=== PATIENT | female | born 1945 | race Caucasian/White ===

== ENCOUNTER → 2016-09-16 | Outpatient (CLI) | payer MEDICARE, OTHER ==
[2016-09-16 16:21] LABS: Urine Bilirubin Negative (Negative); Urine Blood Negative /uL (Negative); Urine Color Yellow (Yellow); Urine Glucose Normal (Normal); Urine Ketone Negative (Negative); Urine Nitrite Negative (Negative); Urine Urobilinogen Normal (Negative); Urine pH 5.5 (5.0-8.0)
[2016-09-16 17:14] LABS: BUN/Creatinine Ratio 15.4; Bilirubin, Direct 0.2 mg/dL (0-0.2); Bilirubin, Total 0.6 mg/dL (0.2-1.0); Calcium 9.5 mg/dL (8.5-10.1); Potassium 4.3 mmol/L (3.5-5.1); Total Protein 7.5 g/dL (6.4-8.2)
[2016-09-16 17:18] LABS: Basophils # (auto) 0 uL; Basophils % (auto) 0.6 % (0.0-2.0); DEFINITIVE VIEW TRANSMISSION; Eosinophils # (auto) 0.1 uL; Eosinophils % (auto) 1.2 % (0.0-7.0); Hematocrit 49.5 % (36.0-46.0); Hemoglobin 16.1 g/dL (12.2-16.2); Lymphocytes # (auto) 2.9 uL; Lymphocytes % (auto) 35.1 % (10.0-50.0); Mean Corpuscular Hemoglobin 33.1 pg (28.0-32.0); Mean Corpuscular Hgb Conc. 32.5 g/dL (32.0-36.0); Mean Corpuscular Volume 101.9 fL (80.0-100.0); Mean Platelet Volume 7.5 fL (7.4-10.4); Monocytes # (auto) 0.5 uL; Neutrophils # (auto) 4.8 uL; Neutrophils % (auto) 57.1 % (37.0-80.0); Platelet Count (auto) 361 10^3/uL (140-450); Red Cell Distribution Width 14.4 % (11.6-16.0); White Blood Cell 8.3 10^3/uL (4.4-10.8)
[2016-09-16 18:10] LABS: Macrocytosis Slight; Platelet Estimate Adequate
== END | disposition home or self-care (01) ==
LOC: LAB 08:32
PROVIDERS: ATTEND Internal Medicine Cardiovascular Disease
DX: I10 Essential (primary) hypertension (principal); E78.00 Pure hypercholesterolemia, unspecified; K74.1 Hepatic sclerosis; E11.9 Type 2 diabetes mellitus without complications; E03.9 Hypothyroidism, unspecified; D64.9 Anemia, unspecified; E55.9 Vitamin D deficiency, unspecified; N39.0 Urinary tract infection, site not specified
CPT/HCPCS: 36415; 80048; 80061; 80076; 81003; 82306; 83036; 84443; 85025; 85049

== ENCOUNTER → 2017-04-12 | Outpatient (CLI) | payer MEDICARE, OTHER ==
[2017-04-12 12:40] LABS: Urine Bilirubin Negative (Negative); Urine Blood Negative /uL (Negative); Urine Color Yellow (Yellow); Urine Glucose Normal (Normal); Urine Ketone Negative (Negative); Urine Nitrite Negative (Negative); Urine Urobilinogen Normal (Negative); Urine pH 5.5 (5.0-8.0)
[2017-04-12 12:48] LABS: Basophils # (auto) 0 uL; CONDITION Y; DEFINITIVE SEE PRINTOUT; Eosinophils # (auto) 0.1 uL; Monocytes # (auto) 0.5 uL
[2017-04-12 12:58] LABS: Basophils % (auto) 0.3 % (0.0-2.0); Eosinophils % (auto) 1.1 % (0.0-7.0); Hematocrit 43.8 % (36.0-46.0); Hemoglobin 14.9 g/dL (12.2-16.2); Lymphocytes # (auto) 2.1 uL; Lymphocytes % (auto) 27.4 % (10.0-50.0); Mean Corpuscular Hemoglobin 34.4 pg (28.0-32.0); Mean Corpuscular Hgb Conc. 34.1 g/dL (32.0-36.0); Mean Platelet Volume 7.2 fL (7.4-10.4); Monocytes % (auto) 6.3 % (0.0-12.0); Neutrophils # (auto) 5.1 uL; Neutrophils % (auto) 64.9 % (37.0-80.0); Platelet Count (auto) 347 10^3/uL (140-450); Red Cell Distribution Width 14.2 % (11.6-16.0); White Blood Cell 7.8 10^3/uL (4.4-10.8)
[2017-04-12 17:56] LABS: Chloride 112 mmol/L (98-107); Potassium 4.1 mmol/L (3.5-5.1); Sodium 144 mmol/L (136-145)
[2017-04-12 18:15] LABS: Albumin 3.8 g/dL (3.4-5.0); Anion Gap 9 (5-15); Aspartate Aminotransferase 15 U/L (15-37); BUN/Creatinine Ratio 21.4; Bilirubin, Direct < 0.1 mg/dL (0-0.2); Bilirubin, Total 0.3 mg/dL (0.2-1.0); Blood Urea Nitrogen 15 mg/dL (7-18); Calcium 8.7 mg/dL (8.5-10.1); Carbon Dioxide 23 mmol/L (21-32); Cholesterol 130 mg/dL (< 200); GFR African American 107 mL/min; GFR Non-African American 88 mL/min; Glucose 88 mg/dL (74-106); LDL Cholesterol 144 mg/dL (< 100); Total Protein 6.8 g/dL (6.4-8.2); Triglycerides 149 mg/dL (< 150)
[2017-04-12 18:16] LABS: Alkaline Phosphatase 72 U/L (45-117); HDL Cholesterol 53 mg/dL (40-59)
== END | disposition home or self-care (01) ==
LOC: LAB 09:28
PROVIDERS: ATTEND Internal Medicine Cardiovascular Disease
DX: I25.10 Atherosclerotic heart disease of native coronary artery without angina pectoris (principal); I10 Essential (primary) hypertension; E78.00 Pure hypercholesterolemia, unspecified; K74.1 Hepatic sclerosis; E11.9 Type 2 diabetes mellitus without complications; E03.9 Hypothyroidism, unspecified; D64.9 Anemia, unspecified; E55.9 Vitamin D deficiency, unspecified; N39.0 Urinary tract infection, site not specified; R79.82 Elevated C-reactive protein (CRP); R70.0 Elevated erythrocyte sedimentation rate
CPT/HCPCS: 36415; 80048; 80061; 80076; 81003; 82306; 83036; 84439; 84443; 85025; 85652; 86141

== ENCOUNTER → 2018-11-18 | Outpatient (CLI) | payer MEDICARE ==
[2018-11-18 11:27] LABS: Basophils # (auto) 0 uL; Basophils % (auto) 0.4 % (0.0-2.0); Eosinophils # (auto) 0.1 uL; Eosinophils % (auto) 1.5 % (0.0-7.0); Hematocrit 44.9 % (36.0-46.0); Lymphocytes # (auto) 1.8 uL; Lymphocytes % (auto) 26.3 % (10.0-50.0); Mean Corpuscular Hemoglobin 33.7 pg (28.0-32.0); Mean Corpuscular Hgb Conc. 33.5 g/dL (32.0-36.0); Mean Corpuscular Volume 100.7 fL (80.0-100.0); Monocytes # (auto) 0.6 uL; Monocytes % (auto) 8.3 % (0.0-12.0); Neutrophils # (auto) 4.5 uL; Neutrophils % (auto) 63.5 % (37.0-80.0); Nucleated Red Blood Cells % 0.2 %; Platelet Count (auto) 297 10^3/uL (140-450); Red Blood Cells 4.46 10^6/uL (4.0-5.20); Red Cell Distribution Width 13.8 % (11.8-14.3)
[2018-11-18 11:33] LABS: Urine Blood Negative /uL (Negative); Urine Specific Gravity 1.018 (1.001-1.035)
[2018-11-18 11:38] LABS: Albumin 3.6 g/dL (3.4-5.0); Potassium 3.7 mmol/L (3.5-5.1)
[2018-11-18 11:44] LABS: BUN/Creatinine Ratio 15.7; Bilirubin, Total 0.5 mg/dL (0.2-1.0); Calcium 8.8 mg/dL (8.5-10.1); Total Protein 7.2 g/dL (6.4-8.2)
[2018-11-18 11:48] LABS: Free T4 (Free Thyroxine) 0.97 ng/dL (0.89-1.76)
== END | disposition home or self-care (01) ==
LOC: LAB 09:09
PROVIDERS: ATTEND Internal Medicine Cardiovascular Disease
DX: N39.0 Urinary tract infection, site not specified (principal); E03.9 Hypothyroidism, unspecified; E11.9 Type 2 diabetes mellitus without complications; E55.9 Vitamin D deficiency, unspecified; D51.9 Vitamin B12 deficiency anemia, unspecified
CPT/HCPCS: 36415; 80053; 80061; 81003; 82306; 82607; 83036; 84439; 84443; 85025; 87086

== ENCOUNTER → 2018-12-02 | Outpatient (CLI) | payer MEDICARE | END | disposition home or self-care (01) | LOC: Rad HDHVI 12:53 | PROVIDERS: ATTEND Internal Medicine Cardiovascular Disease | DX: M25.551 Pain in right hip (principal); M25.552 Pain in left hip | CPT/HCPCS: 72170 ==

== ENCOUNTER → 2020-06-12 | Outpatient (CLI) | payer MEDICARE | END | disposition home or self-care (01) | LOC: Rad HDHVI 16:27 | PROVIDERS: ATTEND Internal Medicine Cardiovascular Disease | DX: M51.27 Other intervertebral disc displacement, lumbosacral region (principal); M48.07 Spinal stenosis, lumbosacral region; M51.25 Other intervertebral disc displacement, thoracolumbar region; M89.38 Hypertrophy of bone, other site; M51.26 Other intervertebral disc displacement, lumbar region; I70.0 Atherosclerosis of aorta | CPT/HCPCS: 72131 ==

== ENCOUNTER → 2020-06-14 | Outpatient (CLI) | payer MEDICARE | END | disposition home or self-care (01) | LOC: Rad HDHVI 15:32 | PROVIDERS: ATTEND Internal Medicine Cardiovascular Disease | DX: I31.3 Pericardial effusion (noninflammatory) (principal); J44.9 Chronic obstructive pulmonary disease, unspecified; R00.2 Palpitations | CPT/HCPCS: 93306 ==

== ENCOUNTER → 2020-06-25 | Outpatient (CLI) | payer MEDICARE ==
[~2020-06-25] VITALS: Ht 171.4 cm; Wt 54.9 kg
[~2020-06-25] MED LIST: ADENOSINE 46 MG in GIVE UN-DILUTED 0 ML IV ONE; ADENOSINE 90 MG/30 ML INJ IV ONE
== END | disposition home or self-care (01) ==
LOC: Rad HDHVI 13:59
PROVIDERS: ATTEND Internal Medicine Cardiovascular Disease
DX: I25.10 Atherosclerotic heart disease of native coronary artery without angina pectoris (principal); I25.2 Old myocardial infarction; F17.210 Nicotine dependence, cigarettes, uncomplicated; Z82.49 Family history of ischemic heart disease and other diseases of the circulatory system
CPT/HCPCS: 78452; 93005; 96374; 96375; A9500; J0153

== ENCOUNTER → 2020-07-01 | Outpatient (CLI) | payer MEDICARE ==
[2020-07-01 12:07] LABS: Basophils # (auto) 0.1 10 ^3/uL (0-0.2); Basophils % (auto) 1.1 % (0.0-2.0); Eosinophils # (auto) 0.1 10 ^3/uL (0-0.8); Eosinophils % (auto) 1.2 % (0.0-7.0); Hematocrit 41.4 % (36.0-46.0); Hemoglobin 13.5 g/dL (12.2-16.2); Lymphocytes % (auto) 30.1 % (10.0-50.0); Mean Corpuscular Hgb Conc. 32.6 g/dL (32.0-36.0); Mean Corpuscular Volume 101.4 fL (80.0-100.0); Monocytes # (auto) 0.7 10 ^3/uL (0-1.3); Monocytes % (auto) 10.9 % (0.0-12.0); Neutrophils # (auto) 3.7 10 ^3/uL (1.6-8.6); Neutrophils % (auto) 56.7 % (37.0-80.0); Nucleated Red Blood Cells % 0.2 %; Platelet Count (auto) 305 10^3/uL (140-450); Red Blood Cells 4.09 10^6/uL (4.0-5.20); Red Cell Distribution Width 13.9 % (11.8-14.3); White Blood Cell 6.5 10^3/uL (4.4-10.8)
[2020-07-01 12:16] LABS: Urine Blood Negative /uL (Negative)
[2020-07-01 12:33] LABS: Free T4 (Free Thyroxine) 0.82 ng/dL (0.89-1.76); Potassium 4.3 mmol/L (3.5-5.1)
[2020-07-01 13:11] LABS: Albumin 3.4 g/dL (3.4-5.0); BUN/Creatinine Ratio 16.9; Bilirubin, Total 0.4 mg/dL (0.2-1.0); Calcium 9.1 mg/dL (8.5-10.1); Total Protein 6.8 g/dL (6.4-8.2)
== END | disposition home or self-care (01) ==
LOC: LAB 08:09
PROVIDERS: ATTEND Internal Medicine Cardiovascular Disease
DX: I10 Essential (primary) hypertension (principal); D51.3 Other dietary vitamin B12 deficiency anemia; E11.9 Type 2 diabetes mellitus without complications; E55.9 Vitamin D deficiency, unspecified; D64.9 Anemia, unspecified; R00.2 Palpitations; R53.1 Weakness; R30.0 Dysuria
CPT/HCPCS: 36415; 80053; 80061; 81003; 82306; 82607; 83036; 84439; 84443; 85025; 87086

== ENCOUNTER → 2020-07-03 | Outpatient (CLI) | payer MEDICARE ==
[~2020-07-03] MED LIST changes: -ADENOSINE 46 MG in GIVE UN-DILUTED 0 ML IV ONE; -ADENOSINE 90 MG/30 ML INJ IV ONE; +IOHEXOL 350 MG/ML 100ML IJ ONE
[2020-07-03 14:07] VITALS: BP 183/83
--- NOTE | 2020-07-03 14:07 | NUR ---
CLINIC PT ARRIVED TO THE CLINIC WITH ORDERS FOR CT CHEST WITH IV CONTRAST R/O ANEURYSM. A/OX4, AMBULATORY, BREATHING IS EVEN AND UNLABORED. CREAT 0.77 ON 07/01/20
--- NOTE | 2020-07-03 14:13 | NUR ---
IV insertion IV access obtained, via clean sterile technique by inserting 20 gauge catheter at LW after 1 attempt(s). IV secured properly. No trauma to site. Patient tolerated procedure well. NOTE INSERTED BY SHOSHANA HUTCHINSON
--- NOTE | 2020-07-03 14:26 | NUR ---
IV removal IV DC'd with sterile technique, catheter fully intact. Pressure dressing applied to site. Patient tolerated procedure well. Discharged with aftercare instructions per MD. NOTE: REMOVED BY SHOSHANA HUTCHINSON
[2020-07-03 14:27] VITALS: BP 159/66
--- NOTE | 2020-07-03 14:27 | NUR ---
Discharge Instructions See e-MAR for any mediations given with this visit. Patient education given on disease process. Patient verbalized understanding. Previous labs reviewed. Patient discharged in stable condition with after care instructions and follow up appointment. PT ADVISED TO INCREASE FLUIDS FOR THE NEXT 24 TO 48 HOURS.
== END | disposition home or self-care (01) ==
LOC: Rad HDHVI 13:59
PROVIDERS: ATTEND Internal Medicine Cardiovascular Disease
DX: I70.0 Atherosclerosis of aorta (principal); I25.10 Atherosclerotic heart disease of native coronary artery without angina pectoris; E04.2 Nontoxic multinodular goiter; K76.89 Other specified diseases of liver; J98.4 Other disorders of lung; M47.819 Spondylosis without myelopathy or radiculopathy, site unspecified; R07.9 Chest pain, unspecified
CPT/HCPCS: 71275; G0463; Q9967

== ENCOUNTER 2020-11-07 07:52 | Inpatient (IN) | payer MEDICARE ==
[~2020-11-07] VITALS: Ht 170.2 cm; Wt 64.8 kg
[2020-11-07] MEDS ORDERED: ANGIOMAX 250 MG VIAL IV ONE (11:03)
[2020-11-07] MEDS ORDERED: fentaNYL CITRATE 100 MCG/2 ML VL ONE (11:03)
[2020-11-07] MEDS ORDERED: MIDAZOLAM HCL 1MG/1ML-2 ML VIAL ONE (11:04)
[2020-11-07] MEDS ORDERED: LIDOCAINE 2%HCL (LOCAL ANESTH.) INJ 20ML MDV ONE (11:04)
[2020-11-07] MEDS ORDERED: IOHEXOL 350 MG/ML 100ML IJ ONE ×2 (11:07→11:37)
[2020-11-07] MEDS ORDERED: CLOPIDOGREL 300 MG TAB ONE (12:05)
[2020-11-07] MEDS ORDERED: ASPirin 325 MG TAB ONE (12:05)
[2020-11-07] MEDS ORDERED: HYDROmorphone HCL 2 MG/ML VL ONE (12:45)
[2020-11-07] MEDS ORDERED: IOPAMIDOL 76 % (ISOVUE-370) 100ML BTL IV ONE (17:16)
[2020-11-07] MEDS ORDERED: MORPHINE SULF INJ 2 MG/ML SYRINGE 1ML IV PRN (18:15)
[2020-11-07] MEDS ORDERED: NITROGLYCERIN 0.4 MG SL TAB SL PRN (18:15)
[2020-11-07 18:45] VITALS: BP 134/65
[2020-11-07 19:02] LABS: Basophils # (auto) 0 10 ^3/uL (0-0.2); Basophils % (auto) 0.3 % (0.0-2.0); Eosinophils # (auto) 0.1 10 ^3/uL (0-0.8); Eosinophils % (auto) 0.7 % (0.0-7.0); Hematocrit 35.7 % (36.0-46.0); Lymphocytes # (auto) 1.9 10 ^3/uL (0.4-5.4); Lymphocytes % (auto) 16.9 % (10.0-50.0); Mean Corpuscular Hemoglobin 33.7 pg (28.0-32.0); Mean Corpuscular Hgb Conc. 33.7 g/dL (32.0-36.0); Mean Corpuscular Volume 100.3 fL (80.0-100.0); Monocytes # (auto) 0.7 10 ^3/uL (0-1.3); Monocytes % (auto) 6.3 % (0.0-12.0); Neutrophils # (auto) 8.5 10 ^3/uL (1.6-8.6); Neutrophils % (auto) 75.8 % (37.0-80.0); Platelet Count (auto) 242 10^3/uL (140-450); Red Blood Cells 3.56 10^6/uL (4.0-5.20); Red Cell Distribution Width 14.1 % (11.8-14.3); White Blood Cell 11.2 10^3/uL (4.4-10.8)
[2020-11-07 22:00] VITALS: BP 127/70
[2020-11-08 05:00] VITALS: BP 127/74
[2020-11-08 09:00] VITALS: BP 135/58
[2020-11-08 13:00] VITALS: BP 136/67
[2020-11-08 13:36] VITALS: BP 136/67
== END 2020-11-08 15:25 | disposition home or self-care (01) | DRG 253 ==
LOC: CATH 07:52 → TELE-CENTR 18:53
PROVIDERS: ADMIT Internal Medicine Cardiovascular Disease; ATTEND Internal Medicine Cardiovascular Disease
PROC: B41F1ZZ Fluoroscopy of Right Lower Extremity Arteries using Low Osmolar Contrast (ICD-10-PCS; principal; 2020-11-07)
PROC: 047C3EZ Dilation of Right Common Iliac Artery with Two Intraluminal Devices, Percutaneous Approach (ICD-10-PCS; 2020-11-07)
PROC: 047D3DZ Dilation of Left Common Iliac Artery with Intraluminal Device, Percutaneous Approach (ICD-10-PCS; 2020-11-07)
PROC: B41G1ZZ Fluoroscopy of Left Lower Extremity Arteries using Low Osmolar Contrast (ICD-10-PCS; 2020-11-07)
PROC: B4101ZZ Fluoroscopy of Abdominal Aorta using Low Osmolar Contrast (ICD-10-PCS; 2020-11-07)
DX: I70.211 Atherosclerosis of native arteries of extremities with intermittent claudication, right leg (principal); D68.59 Other primary thrombophilia; I10 Essential (primary) hypertension; E78.5 Hyperlipidemia, unspecified; J44.9 Chronic obstructive pulmonary disease, unspecified; Z20.822 Contact with and (suspected) exposure to COVID-19; I70.202 Unspecified atherosclerosis of native arteries of extremities, left leg
CPT/HCPCS: 36415; 37221; 74177; 75625; 75716; 85025; 86850; 86900; 86901; 86920; 99152; 99153; G0378; J2250

== ENCOUNTER → 2021-01-14 | Outpatient (CLI) | payer MEDICARE ==
[~2021-01-14] MED LIST changes: +CLOP75TA28 PO; -IOHEXOL 350 MG/ML 100ML IJ ONE
[2021-01-14 09:11] VITALS: BP 153/72
[2021-01-14 09:27] VITALS: BP 152/71
[2021-01-14 12:05] LABS: Basophils # (auto) 0.1 10 ^3/uL (0-0.2); Eosinophils # (auto) 0.1 10 ^3/uL (0-0.8); Hemoglobin 14.9 g/dL (12.2-16.2)
[2021-01-14 12:08] LABS: Basophils % (auto) 0.8 % (0.0-2.0); Eosinophils % (auto) 0.9 % (0.0-7.0); Hematocrit 42.8 % (36.0-46.0); Lymphocytes # (auto) 1.5 10 ^3/uL (0.4-5.4); Lymphocytes % (auto) 18.6 % (10.0-50.0); Mean Corpuscular Hemoglobin 34.8 pg (28.0-32.0); Mean Corpuscular Hgb Conc. 34.8 g/dL (32.0-36.0); Monocytes # (auto) 0.6 10 ^3/uL (0-1.3); Monocytes % (auto) 7.5 % (0.0-12.0); Neutrophils # (auto) 5.9 10 ^3/uL (1.6-8.6); Neutrophils % (auto) 72.2 % (37.0-80.0); Platelet Count (auto) 323 10^3/uL (140-450); Red Blood Cells 4.28 10^6/uL (4.0-5.20); Red Cell Distribution Width 14.8 % (11.8-14.3); White Blood Cell 8.2 10^3/uL (4.4-10.8)
[2021-01-14 12:22] LABS: BUN/Creatinine Ratio 15.7; Potassium 3.4 mmol/L (3.5-5.1)
[2021-01-14 12:23] LABS: INR 0.98 (0.9-1.15); Partial Thromboplastin Time 28.5 sec (23.0-31.2)
== END | disposition home or self-care (01) ==
LOC: Rad HDHVI 08:58
PROVIDERS: ATTEND Internal Medicine Cardiovascular Disease
DX: Z01.812 Encounter for preprocedural laboratory examination (principal); I10 Essential (primary) hypertension; I73.9 Peripheral vascular disease, unspecified; R06.02 Shortness of breath
CPT/HCPCS: 36415; 71046; 80048; 85025; 85610; 85730; 93005; G0463

== ENCOUNTER 2021-01-16 06:50 | Day surgery (SDC) | payer MEDICARE ==
[~2021-01-16] VITALS: Ht 172.7 cm; Wt 58.1 kg
[2021-01-16] MEDS ORDERED: IOHEXOL 350 MG/ML 100ML IJ ONE (08:09)
[2021-01-16] MEDS ORDERED: LIDOCAINE 2%HCL (LOCAL ANESTH.) INJ 20ML MDV ONE (08:09)
[2021-01-16] MEDS ORDERED: ANGIOMAX 250 MG VIAL IV ONE (09:08)
[2021-01-16] MEDS ORDERED: MIDAZOLAM HCL 1MG/1ML-2 ML VIAL ONE (09:09)
[2021-01-16] MEDS ORDERED: fentaNYL CITRATE 100 MCG/2 ML VL ONE (09:09)
[2021-01-16] MEDS ORDERED: SODIUM CHL 0.9% 50 ML ONE (09:09)
[2021-01-16] MEDS ORDERED: ACETAMINOPHEN 500 MG TAB PO PRN (10:45)
== END 2021-01-16 13:15 | disposition home or self-care (01) ==
LOC: CATH 06:50
PROVIDERS: ATTEND Internal Medicine Cardiovascular Disease
DX: I73.9 Peripheral vascular disease, unspecified (principal); I70.92 Chronic total occlusion of artery of the extremities; J44.9 Chronic obstructive pulmonary disease, unspecified; I10 Essential (primary) hypertension; E78.5 Hyperlipidemia, unspecified; E78.00 Pure hypercholesterolemia, unspecified; F17.200 Nicotine dependence, unspecified, uncomplicated; I20.9 Angina pectoris, unspecified; Z95.820 Peripheral vascular angioplasty status with implants and grafts; Z79.01 Long term (current) use of anticoagulants; Z95.5 Presence of coronary angioplasty implant and graft; Z20.822 Contact with and (suspected) exposure to COVID-19; Z82.49 Family history of ischemic heart disease and other diseases of the circulatory system
CPT/HCPCS: 37226; 75716; C1760; C1769; C1887; C1894; J0583; J1644; J2250; J3010; Q9967; U0003; 99152; 99153

== ENCOUNTER → 2021-06-11 | Outpatient (CLI) | payer MEDICARE | END | disposition home or self-care (01) | LOC: Rad HDHVI 13:05 | PROVIDERS: ATTEND Internal Medicine Cardiovascular Disease | DX: E78.5 Hyperlipidemia, unspecified (principal); R60.9 Edema, unspecified | CPT/HCPCS: 93971 ==

== ENCOUNTER → 2021-06-13 | Outpatient (CLI) | payer MEDICARE | END | disposition home or self-care (01) | LOC: Rad HDHVI 10:54 | PROVIDERS: ATTEND Internal Medicine Cardiovascular Disease | DX: I10 Essential (primary) hypertension (principal); R06.02 Shortness of breath | CPT/HCPCS: 93306 ==

== ENCOUNTER → 2021-06-18 | Outpatient (CLI) | payer MEDICARE ==
[~2021-06-18] VITALS: Ht 170.2 cm; Wt 54.0 kg
[~2021-06-18] MED LIST changes: +ADENOSINE 45 MG in GIVE UN-DILUTED 0 ML IV ONE; +ADENOSINE 90 MG/30 ML INJ IV ONE
== END | disposition home or self-care (01) ==
LOC: Rad HDHVI 13:29
PROVIDERS: ATTEND Internal Medicine Cardiovascular Disease
DX: I25.10 Atherosclerotic heart disease of native coronary artery without angina pectoris (principal); I25.2 Old myocardial infarction; F17.210 Nicotine dependence, cigarettes, uncomplicated; Z82.49 Family history of ischemic heart disease and other diseases of the circulatory system
CPT/HCPCS: 78452; 93005; 96374; 96375; A9500; J0153

== ENCOUNTER → 2022-05-29 | Outpatient (CLI) | payer MEDICARE ==
[~2022-05-29] MED LIST changes: -ADENOSINE 45 MG in GIVE UN-DILUTED 0 ML IV ONE; -ADENOSINE 90 MG/30 ML INJ IV ONE
[2022-05-29 12:18] LABS: Potassium 4.2 mmol/L (3.5-5.1)
[2022-05-29 12:41] LABS: Albumin 3.4 g/dL (3.4-5.0); BUN/Creatinine Ratio 17.1; Bilirubin, Total 0.4 mg/dL (0.2-1.0); Calcium 9.1 mg/dL (8.5-10.1); Total Protein 6.8 g/dL (6.4-8.2)
[2022-06-01 10:54] LABS: Hepatitis B Surface Antibody Negative (Negative)
[2022-06-01 12:31] LABS: Hepatitis A Total Antibody Negative (Negative)
[2022-06-01 13:26] LABS: Hepatitis C Antibody Negative (Negative)
== END | disposition home or self-care (01) ==
LOC: LAB 08:50
PROVIDERS: ATTEND Internal Medicine
DX: E78.5 Hyperlipidemia, unspecified (principal)
CPT/HCPCS: 36415; 80053; 80061; 86704; 86706; 86708; 86803; 87340

== ENCOUNTER → 2022-06-22 | Outpatient (CLI) | payer MEDICARE | END | disposition home or self-care (01) | LOC: Rad HDHVI 14:57 | PROVIDERS: ATTEND Internal Medicine Cardiovascular Disease | DX: I08.1 Rheumatic disorders of both mitral and tricuspid valves (principal); I48.92 Unspecified atrial flutter; R60.0 Localized edema; I50.22 Chronic systolic (congestive) heart failure | CPT/HCPCS: 93306 ==

== ENCOUNTER → 2022-06-29 | Outpatient (CLI) | payer MEDICARE ==
[~2022-06-29] VITALS: Ht 170.2 cm; Wt 58.5 kg
[~2022-06-29] MED LIST changes: +ADENOSINE 49 MG in GIVE UN-DILUTED 0 ML IV ONE; +ADENOSINE 90 MG/30 ML INJ IV ONE
== END | disposition home or self-care (01) ==
LOC: Rad HDHVI 13:21
PROVIDERS: ATTEND Internal Medicine Cardiovascular Disease
DX: Z01.810 Encounter for preprocedural cardiovascular examination (principal); I25.10 Atherosclerotic heart disease of native coronary artery without angina pectoris; I25.2 Old myocardial infarction; E78.00 Pure hypercholesterolemia, unspecified; J44.9 Chronic obstructive pulmonary disease, unspecified; R40.0 Somnolence; I48.92 Unspecified atrial flutter; I50.22 Chronic systolic (congestive) heart failure; F17.210 Nicotine dependence, cigarettes, uncomplicated; Z88.8 Allergy status to other drugs, medicaments and biological substances; Z82.49 Family history of ischemic heart disease and other diseases of the circulatory system
CPT/HCPCS: 78452; 93005; 96374; 96375; A9500; J0153

== ENCOUNTER → 2022-07-17 | Outpatient (CLI) | payer MEDICARE ==
[~2022-07-17] MED LIST changes: -ADENOSINE 49 MG in GIVE UN-DILUTED 0 ML IV ONE; -ADENOSINE 90 MG/30 ML INJ IV ONE
== END | disposition home or self-care (01) ==
LOC: Rad HDHVI 13:13
PROVIDERS: ATTEND Internal Medicine Cardiovascular Disease
DX: I70.0 Atherosclerosis of aorta (principal); Z01.818 Encounter for other preprocedural examination; M47.814 Spondylosis without myelopathy or radiculopathy, thoracic region
CPT/HCPCS: 71046

== ENCOUNTER → 2022-08-07 | Outpatient (CLI) | payer MEDICARE ==
[2022-08-07 14:10] LABS: Basophils # (auto) 0 10 ^3/uL (0-0.2); Basophils % (auto) 0.4 % (0.0-2.0); Eosinophils # (auto) 0 10 ^3/uL (0-0.8); Eosinophils % (auto) 0.2 % (0.0-7.0); Hematocrit 42.7 % (36.0-46.0); Hemoglobin 14.2 g/dL (12.2-16.2); Lymphocytes # (auto) 1.1 10 ^3/uL (0.4-5.4); Lymphocytes % (auto) 17.4 % (10.0-50.0); Mean Corpuscular Hemoglobin 33.6 pg (28.0-32.0); Mean Corpuscular Hgb Conc. 33.2 g/dL (32.0-36.0); Monocytes # (auto) 0.5 10 ^3/uL (0-1.3); Monocytes % (auto) 8.1 % (0.0-12.0); Neutrophils # (auto) 4.6 10 ^3/uL (1.6-8.6); Neutrophils % (auto) 73.9 % (37.0-80.0); Red Blood Cells 4.22 10^6/uL (4.0-5.20); Red Cell Distribution Width 14.1 % (11.8-14.3); White Blood Cell 6.2 10^3/uL (4.4-10.8)
[2022-08-07 14:11] LABS: Urine Blood Negative /uL (Negative); Urine Specific Gravity 1.007 (1.001-1.035)
[2022-08-07 14:19] LABS: Albumin 3.7 g/dL (3.4-5.0); Calcium 9.2 mg/dL (8.5-10.1); Potassium 4.4 mmol/L (3.5-5.1)
[2022-08-07 14:23] LABS: BUN/Creatinine Ratio 16.7; Bilirubin, Total 0.4 mg/dL (0.2-1.0)
== END | disposition home or self-care (01) ==
LOC: LAB 13:11
PROVIDERS: ATTEND Internal Medicine Cardiovascular Disease
DX: N39.0 Urinary tract infection, site not specified (principal); I10 Essential (primary) hypertension
CPT/HCPCS: 36415; 80053; 81003; 85025

== ENCOUNTER → 2022-09-11 | Outpatient (CLI) | payer MEDICARE ==
[2022-09-11 14:20] LABS: Urine Blood Negative /uL (Negative); Urine Specific Gravity 1.006 (1.001-1.035)
[2022-09-11 14:26] LABS: Basophils # (auto) 0 10 ^3/uL (0-0.2); Basophils % (auto) 0.4 % (0.0-2.0); Eosinophils # (auto) 0 10 ^3/uL (0-0.8); Eosinophils % (auto) 0.1 % (0.0-7.0); Hematocrit 43.2 % (36.0-46.0); Hemoglobin 14.2 g/dL (12.2-16.2); Lymphocytes # (auto) 1.3 10 ^3/uL (0.4-5.4); Lymphocytes % (auto) 17.1 % (10.0-50.0); Mean Corpuscular Hemoglobin 33.3 pg (28.0-32.0); Mean Corpuscular Hgb Conc. 32.9 g/dL (32.0-36.0); Mean Corpuscular Volume 101.2 fL (80.0-100.0); Monocytes # (auto) 0.5 10 ^3/uL (0-1.3); Monocytes % (auto) 6.5 % (0.0-12.0); Neutrophils # (auto) 5.6 10 ^3/uL (1.6-8.6); Neutrophils % (auto) 75.9 % (37.0-80.0); Nucleated Red Blood Cells % 0.1 %; Red Blood Cells 4.27 10^6/uL (4.0-5.20); Red Cell Distribution Width 14.1 % (11.8-14.3); White Blood Cell 7.4 10^3/uL (4.4-10.8)
[2022-09-11 14:42] LABS: Albumin 4.1 g/dL (3.4-5.0); Calcium 8.9 mg/dL (8.5-10.1); Potassium 3.9 mmol/L (3.5-5.1)
[2022-09-11 14:45] LABS: BUN/Creatinine Ratio 18.1; Bilirubin, Total 0.3 mg/dL (0.2-1.0); Total Protein 7.3 g/dL (6.4-8.2)
== END | disposition home or self-care (01) ==
LOC: LAB 13:02
PROVIDERS: ATTEND Internal Medicine Cardiovascular Disease
DX: N39.0 Urinary tract infection, site not specified (principal)
CPT/HCPCS: 36415; 80053; 81003; 85025

== ENCOUNTER 2022-11-10 12:27 | Inpatient (IN) | payer MEDICARE ==
[2022-11-10] VITALS (9 sets, daily range): BP systolic 95–134; BP diastolic 57–85
[~2022-11-10] VITALS: Ht 170.2 cm; Wt 60.9 kg
[2022-11-10] MEDS ORDERED: SODIUM CHLORIDE 0.9% 500 ML IV ONE (12:45)
[2022-11-10 12:53] LABS: Basophils # (auto) 0 10 ^3/uL (0-0.2); Basophils % (auto) 0.5 % (0.0-2.0); Eosinophils # (auto) 0 10 ^3/uL (0-0.8); Eosinophils % (auto) 0.3 % (0.0-7.0); Hemoglobin 12.8 g/dL (12.2-16.2); Lymphocytes # (auto) 1.4 10 ^3/uL (0.4-5.4); Lymphocytes % (auto) 15.3 % (10.0-50.0); Mean Corpuscular Hemoglobin 33.7 pg (28.0-32.0); Mean Corpuscular Hgb Conc. 33.7 g/dL (32.0-36.0); Mean Corpuscular Volume 99.8 fL (80.0-100.0); Monocytes # (auto) 0.5 10 ^3/uL (0-1.3); Monocytes % (auto) 5.3 % (0.0-12.0); Neutrophils # (auto) 7.2 10 ^3/uL (1.6-8.6); Neutrophils % (auto) 78.6 % (37.0-80.0); Nucleated Red Blood Cells % 0.1 %; Red Blood Cells 3.81 10^6/uL (4.0-5.20); Red Cell Distribution Width 14.5 % (11.8-14.3); White Blood Cell 9.2 10^3/uL (4.4-10.8)
[2022-11-10] MEDS ORDERED: HEPARIN SODIUM (PORCINE) 5000 UNITS/ML 1ML VIAL ONE (12:57)
[2022-11-10] MEDS ORDERED: ANGIOMAX 250 MG VIAL IV ONE (12:57)
[2022-11-10] MEDS ORDERED: VERAPAMIL 2.5MG/ML INJ 2ML VIAL IV ONE (12:57)
[2022-11-10] MEDS ORDERED: ATROPINE SULF 1 MG/10ml SYR ONE ×2 (12:57→13:29)
[2022-11-10] MEDS ORDERED: EPINEPHrine HCL 1 MG/10 ML SYRG ONE (12:58)
[2022-11-10] MEDS ORDERED: fentaNYL CITRATE 100 MCG/2 ML VL ONE (12:58)
[2022-11-10] MEDS ORDERED: SODIUM CHL 0.9% 50 ML ONE (12:58)
[2022-11-10] MEDS ORDERED: LIDOCAINE 2%HCL (LOCAL ANESTH.) INJ 10ml MDV ONE (12:58)
[2022-11-10] MEDS ORDERED: IODIXANOL 320MG/ML 100ML BTL IV ONE (12:58)
[2022-11-10] MEDS ORDERED: MIDAZOLAM HCL 2MG/2ML 2ml VIAL (1mg/ml) ONE (12:58)
[2022-11-10 13:09] LABS: Albumin 3.5 g/dL (3.4-5.0); BUN/Creatinine Ratio 21.1; Calcium 8.8 mg/dL (8.5-10.1); Potassium 3.8 mmol/L (3.5-5.1)
[2022-11-10 13:12] LABS: Bilirubin, Total 0.5 mg/dL (0.2-1.0); Total Protein 6.6 g/dL (6.4-8.2)
[2022-11-10] MEDS ORDERED: IOHEXOL 350 MG/ML 100ML IJ ONE (13:28)
[2022-11-10] MEDS ORDERED: METOCLOPRAMIDE HCL 5MG/ml INJ 2ml VIAL ONE (13:29)
[2022-11-10] MEDS ORDERED: TICAGRELOR 90 MG TAB ONE (13:36)
[2022-11-10] MEDS ORDERED: ACETAMINOPHEN 500 MG TAB PO PRN (13:45)
[2022-11-10] MEDS ORDERED: HYDROcodone-ACET 5/325MG TAB PO PRN (13:45)
[2022-11-10] MEDS ORDERED: NITROGLYCERIN 0.4 MG SL TAB SL PRN ×2 (13:45)
[2022-11-10] MEDS ORDERED: MORPHINE SULFATE INJ 2 MG/ml SYRG IV PRN (13:45)
[2022-11-10] MEDS ORDERED: ONDANSETRON HCL 4 MG/2 ML VIAL IV PRN (13:45)
[2022-11-10] MEDS: SODIUM CHLOR 0.9% PF (SALINE LOCK) 10ML VIAL/SYR IV SCH ×2 (14:00→21:33)
[2022-11-10] MEDS: TICAGRELOR 90 MG TAB PO SCH (21:32)
[2022-11-10] MEDS: ATORVASTATIN 20 MG TAB PO SCH (21:32)
[2022-11-11 05:03] VITALS: BP 131/68
[2022-11-11 05:51] LABS: Basophils # (auto) 0 10 ^3/uL (0-0.2); Basophils % (auto) 0.2 % (0.0-2.0); Eosinophils # (auto) 0 10 ^3/uL (0-0.8); Eosinophils % (auto) 0.1 % (0.0-7.0); Hemoglobin 12.3 g/dL (12.2-16.2); Lymphocytes # (auto) 1.9 10 ^3/uL (0.4-5.4); Mean Corpuscular Hemoglobin 33.8 pg (28.0-32.0); Mean Corpuscular Volume 99.3 fL (80.0-100.0); Monocytes # (auto) 0.8 10 ^3/uL (0-1.3); Neutrophils # (auto) 7.6 10 ^3/uL (1.6-8.6); Neutrophils % (auto) 73.7 % (37.0-80.0); Nucleated Red Blood Cells % 0.1 %; Red Blood Cells 3.63 10^6/uL (4.0-5.20); Red Cell Distribution Width 14.4 % (11.8-14.3); White Blood Cell 10.3 10^3/uL (4.4-10.8)
[2022-11-11 06:05] LABS: Calcium 8.4 mg/dL (8.5-10.1); Potassium 3.3 mmol/L (3.5-5.1)
[2022-11-11 06:07] LABS: BUN/Creatinine Ratio 20.3
[2022-11-11] MEDS: SODIUM CHLOR 0.9% PF (SALINE LOCK) 10ML VIAL/SYR IV SCH ×3 (06:28→21:18)
[2022-11-11 09:00] VITALS: BP 132/65
[2022-11-11] MEDS: ASPirin-EC 81 mg tab PO SCH (09:40)
[2022-11-11] MEDS: TICAGRELOR 90 MG TAB PO SCH ×2 (09:40→21:18)
[2022-11-11 13:00] VITALS: BP 147/62
[2022-11-11 13:21] LABS: Potassium 3.4 mmol/L (3.5-5.1)
[2022-11-11] MEDS ORDERED: POTASSIUM CHL 20 Meq TABLET PO ONE ×3 (16:30→20:30)
[2022-11-11 16:58] VITALS: BP 142/64
[2022-11-11] MEDS: ATORVASTATIN 20 MG TAB PO SCH (21:18)
[2022-11-11 22:00] VITALS: BP 141/70
[2022-11-12 05:07] VITALS: BP 152/86
[2022-11-12] MEDS: SODIUM CHLOR 0.9% PF (SALINE LOCK) 10ML VIAL/SYR IV SCH ×2 (05:58→15:17)
[2022-11-12 08:00] VITALS: BP 153/73
[2022-11-12] MEDS: ASPirin-EC 81 mg tab PO SCH (09:02)
[2022-11-12] MEDS: TICAGRELOR 90 MG TAB PO SCH (09:02)
[2022-11-12 12:00] VITALS: BP 151/59
== END 2022-11-12 15:05 | disposition home or self-care (01) | DRG 247 ==
LOC: EDBD 12:27 → ER 12:27 → TELE 13:49 → TELE-CENTR 16:06
PROVIDERS: ADMIT Internal Medicine Cardiovascular Disease; ATTEND Internal Medicine Cardiovascular Disease
PROC: 4A023N7 Measurement of Cardiac Sampling and Pressure, Left Heart, Percutaneous Approach (ICD-10-PCS; principal; 2022-11-10)
PROC: 027034Z Dilation of Coronary Artery, One Artery with Drug-eluting Intraluminal Device, Percutaneous Approach (ICD-10-PCS; 2022-11-10)
PROC: B211YZZ Fluoroscopy of Multiple Coronary Arteries using Other Contrast (ICD-10-PCS; 2022-11-10)
PROC: B215YZZ Fluoroscopy of Left Heart using Other Contrast (ICD-10-PCS; 2022-11-10)
DX: I21.29 ST elevation (STEMI) myocardial infarction involving other sites (principal); I47.20 Ventricular tachycardia, unspecified; Z72.0 Tobacco use; Z20.822 Contact with and (suspected) exposure to COVID-19; E78.5 Hyperlipidemia, unspecified; I10 Essential (primary) hypertension; I25.10 Atherosclerotic heart disease of native coronary artery without angina pectoris; Z71.6 Tobacco abuse counseling
CPT/HCPCS: 36415; 71045; 71275; 80048; 80053; 83735; 84132; 84484; 85025; 87426; 92928; 93005; 93458; 99152; 99153; 99291; C1887; G0378; J2001; J2250; J2405; Q9967

== ENCOUNTER → 2022-12-30 | Outpatient (CLI) | payer MEDICARE | END | disposition home or self-care (01) | LOC: Rad HDHVI 13:00 | PROVIDERS: ATTEND Internal Medicine Cardiovascular Disease | DX: I34.0 Nonrheumatic mitral (valve) insufficiency (principal); R06.02 Shortness of breath; I10 Essential (primary) hypertension | CPT/HCPCS: 93306 ==

== ENCOUNTER → 2023-01-18 | Outpatient (CLI) | payer MEDICARE ==
[~2023-01-18] VITALS: Ht 172.7 cm; Wt 59.0 kg
[~2023-01-18] MED LIST changes: +ADENOSINE 50 MG in GIVE UN-DILUTED 0 ML IV ONE; +ADENOSINE 90 MG/30 ML INJ IV ONE
== END | disposition home or self-care (01) ==
LOC: Rad HDHVI 08:28
PROVIDERS: ATTEND Internal Medicine Cardiovascular Disease
DX: I25.10 Atherosclerotic heart disease of native coronary artery without angina pectoris (principal); I10 Essential (primary) hypertension; E78.5 Hyperlipidemia, unspecified; J44.9 Chronic obstructive pulmonary disease, unspecified; I25.2 Old myocardial infarction; F17.210 Nicotine dependence, cigarettes, uncomplicated; Z82.49 Family history of ischemic heart disease and other diseases of the circulatory system
CPT/HCPCS: 78452; 93005; 96374; 96375; A9500; J0153

== ENCOUNTER → 2023-09-14 | Outpatient (CLI) | payer MEDICARE ==
[~2023-09-14] MED LIST changes: -ADENOSINE 50 MG in GIVE UN-DILUTED 0 ML IV ONE; -ADENOSINE 90 MG/30 ML INJ IV ONE
== END | disposition home or self-care (01) ==
LOC: Rad HDHVI 14:48
PROVIDERS: ATTEND Internal Medicine Cardiovascular Disease
DX: I34.0 Nonrheumatic mitral (valve) insufficiency (principal); I11.9 Hypertensive heart disease without heart failure; R42 Dizziness and giddiness
CPT/HCPCS: 93306

== ENCOUNTER → 2023-09-22 | Outpatient (CLI) | payer MEDICARE ==
[~2023-09-22] VITALS: Ht 171.4 cm; Wt 61.7 kg
[~2023-09-22] MED LIST changes: +ADENOSINE 52 MG in GIVE UN-DILUTED 0 ML IV ONE; +ADENOSINE 90 MG/30 ML INJ IV ONE
== END | disposition home or self-care (01) ==
LOC: Rad HDHVI 13:45
PROVIDERS: ATTEND Internal Medicine Cardiovascular Disease
DX: I11.0 Hypertensive heart disease with heart failure (principal); I50.9 Heart failure, unspecified; I25.10 Atherosclerotic heart disease of native coronary artery without angina pectoris; R00.2 Palpitations; R06.02 Shortness of breath; I25.2 Old myocardial infarction; I25.5 Ischemic cardiomyopathy; E78.00 Pure hypercholesterolemia, unspecified; F17.210 Nicotine dependence, cigarettes, uncomplicated; Z82.49 Family history of ischemic heart disease and other diseases of the circulatory system
CPT/HCPCS: 78452; 93005; 96374; 96375; A9500; J0153

== ENCOUNTER 2024-01-20 06:55 | Day surgery (SDC) | payer MEDICARE ==
[2024-01-18 12:13] LABS: Basophils # (auto) 0 10 ^3/uL (0-0.2); Basophils % (auto) 0.6 % (0.0-2.0); Eosinophils # (auto) 0 10 ^3/uL (0-0.8); Eosinophils % (auto) 0.5 % (0.0-7.0); Hematocrit 44.7 % (36.0-46.0); Lymphocytes # (auto) 1.5 10 ^3/uL (0.4-5.4); Lymphocytes % (auto) 18.1 % (10.0-50.0); Mean Corpuscular Hemoglobin 33.9 pg (28.0-32.0); Mean Corpuscular Hgb Conc. 33.5 g/dL (32.0-36.0); Mean Corpuscular Volume 101.1 fL (80.0-100.0); Monocytes # (auto) 0.5 10 ^3/uL (0-1.3); Monocytes % (auto) 6.4 % (0.0-12.0); Neutrophils # (auto) 6.1 10 ^3/uL (1.6-8.6); Neutrophils % (auto) 74.4 % (37.0-80.0); Nucleated Red Blood Cells % 0.1 %; Red Blood Cells 4.43 10^6/uL (4.0-5.20); White Blood Cell 8.2 10^3/uL (4.4-10.8)
[2024-01-18 12:30] LABS: INR 0.99 (0.9-1.15); Partial Thromboplastin Time 26.8 SEC (24.5-34.5); Prothrombin Time 10.5 sec (9.3-11.8)
[2024-01-18 13:22] LABS: Anion Gap 5 (5-15); Calcium 10.2 mg/dL (8.5-10.1); Carbon Dioxide 27 mmol/L (20-30); Chloride 110 mmol/L (98-107); Potassium 4.1 mmol/L (3.5-5.1); Sodium 142 mmol/L (136-145)
[2024-01-18 13:28] LABS: BUN/Creatinine Ratio 14.4 (10.0-20.0); Blood Urea Nitrogen 13 mg/dL (9-23); Glucose 104 mg/dL (74-106)
[~2024-01-20] VITALS: Ht 170.2 cm; Wt 60.8 kg
[2024-01-20] VITALS (10 sets, daily range): BP systolic 114–150; BP diastolic 64–75; PULSE 67–78; RESP 11–17; TEMP 97.8; O2SAT 92–96
[~2024-01-20 06:55] MED LIST changes: -ADENOSINE 52 MG in GIVE UN-DILUTED 0 ML IV ONE; -ADENOSINE 90 MG/30 ML INJ IV ONE; +CARV3.1240 PO; +VERI2.5T PO
[2024-01-20] MEDS ORDERED: fentaNYL CITRATE 100 MCG/2 ML VL ONE (10:14)
[2024-01-20] MEDS ORDERED: ANGIOMAX 250 MG VIAL IV ONE (10:14)
[2024-01-20] MEDS ORDERED: MIDAZOLAM HCL 2MG/2ML 2ml VIAL (1mg/ml) ONE (10:15)
[2024-01-20] MEDS ORDERED: SODIUM CHL 0.9% 0 ML ONE (10:15)
[2024-01-20] MEDS ORDERED: NITROGLYCERIN 0.4MG/DOSE SPRAY 4.9GM ONE (10:35)
== END 2024-01-20 13:15 | disposition home or self-care (01) ==
LOC: CATH 06:55
PROVIDERS: ATTEND Internal Medicine Cardiovascular Disease
DX: R06.02 Shortness of breath (principal); I10 Essential (primary) hypertension; I24.0 Acute coronary thrombosis not resulting in myocardial infarction; Z79.01 Long term (current) use of anticoagulants; Z87.891 Personal history of nicotine dependence; Z79.899 Other long term (current) drug therapy; Z98.890 Other specified postprocedural states; Z95.5 Presence of coronary angioplasty implant and graft
CPT/HCPCS: 36415; 75630; 80048; 85025; 85610; 85730; 93458; C1760; C1894; J1644; J2250; J3010; J7030; Q9967; 99152

== ENCOUNTER → 2024-02-23 | Outpatient (CLI) | payer MEDICARE ==
[2024-02-23 11:49] VITALS: BP 172/74; PULSE 85; RESP 16; O2SAT 96
[2024-02-23 12:08] VITALS: BP 154/74; PULSE 86; RESP 16; O2SAT 96
== END | disposition home or self-care (01) ==
LOC: Rad HDHVI 11:34
PROVIDERS: ATTEND Internal Medicine Cardiovascular Disease
DX: I11.9 Hypertensive heart disease without heart failure (principal); I42.0 Dilated cardiomyopathy; I49.9 Cardiac arrhythmia, unspecified
CPT/HCPCS: 71046; 93005; G0463

== ENCOUNTER 2024-02-24 08:33 | Day surgery (SDC) | payer MEDICARE ==
[2024-02-23 12:37] LABS: Basophils # (auto) 0 10 ^3/uL (0-0.2); Basophils % (auto) 0.4 % (0.0-2.0); Eosinophils # (auto) 0 10 ^3/uL (0-0.8); Lymphocytes # (auto) 1.8 10 ^3/uL (0.4-5.4); Monocytes # (auto) 0.7 10 ^3/uL (0-1.3); White Blood Cell 7.8 10^3/uL (4.4-10.8)
[2024-02-23 12:39] LABS: Eosinophils % (auto) 0.2 % (0.0-7.0); Hematocrit 41.7 % (36.0-46.0); Hemoglobin 14.2 g/dL (12.2-16.2); Lymphocytes % (auto) 22.6 % (10.0-50.0); Mean Corpuscular Hemoglobin 34.1 pg (28.0-32.0); Mean Corpuscular Hgb Conc. 33.9 g/dL (32.0-36.0); Mean Corpuscular Volume 100.5 fL (80.0-100.0); Monocytes % (auto) 9.2 % (0.0-12.0); Neutrophils # (auto) 5.3 10 ^3/uL (1.6-8.6); Neutrophils % (auto) 67.6 % (37.0-80.0); Red Blood Cells 4.15 10^6/uL (4.0-5.20); Red Cell Distribution Width 14.2 % (11.8-14.3)
[2024-02-23 12:57] LABS: Anion Gap 4 (5-15); Carbon Dioxide 29 mmol/L (20-30); Chloride 109 mmol/L (98-107); INR 1.03 (0.9-1.15); Partial Thromboplastin Time 26.5 SEC (24.5-34.5); Potassium 4.4 mmol/L (3.5-5.1); Prothrombin Time 10.9 sec (9.3-11.8); Sodium 142 mmol/L (136-145)
[2024-02-23 13:03] LABS: Blood Urea Nitrogen 10 mg/dL (9-23); Glucose 88 mg/dL (74-106)
[~2024-02-24] VITALS: Ht 170.2 cm; Wt 61.2 kg
[2024-02-24] MEDS ORDERED: fentaNYL CITRATE 100 MCG/2 ML VL ONE (11:48)
[2024-02-24] MEDS ORDERED: MIDAZOLAM HCL 2MG/2ML 2ml VIAL (1mg/ml) ONE (11:49)
[2024-02-24] MEDS ORDERED: IOHEXOL 350 MG/ML 100ML IJ ONE (11:49)
[2024-02-24] MEDS ORDERED: LIDOCAINE 2%HCL (LOCAL ANESTH.) INJ 20ML MDV ONE ×2 (11:49→11:58)
[2024-02-24] MEDS ORDERED: VANCOMYCIN HCL 1000 MG VL ONE (12:09)
[2024-02-24] MEDS ORDERED: FUROSEMIDE 20 MG/2 ML VIAL ONE (13:17)
== END 2024-02-24 15:40 | disposition home or self-care (01) ==
LOC: CATH 08:33
PROVIDERS: ATTEND Internal Medicine Cardiovascular Disease
DX: I25.5 Ischemic cardiomyopathy (principal); I42.0 Dilated cardiomyopathy; R00.1 Bradycardia, unspecified; I11.0 Hypertensive heart disease with heart failure; I50.21 Acute systolic (congestive) heart failure; I48.92 Unspecified atrial flutter; J44.9 Chronic obstructive pulmonary disease, unspecified; Z72.0 Tobacco use
CPT/HCPCS: 33225; 33249; 71045; 93005; C1730; C1769; C1882; C1887; C1894; C1895; C1898; C1900; J1644; J1940; J2250; J3010; J3370; J7030; Q9967; 36415; 80048; 85025; 85610; 85730; 99152

== ENCOUNTER → 2024-03-16 | Outpatient (CLI) | payer MEDICARE | END | disposition home or self-care (01) | LOC: Rad HDHVI 12:45 | PROVIDERS: ATTEND Internal Medicine Cardiovascular Disease | DX: I08.0 Rheumatic disorders of both mitral and aortic valves (principal); I10 Essential (primary) hypertension | CPT/HCPCS: 93306 ==

== ENCOUNTER 2025-03-05 12:51 | Outpatient (CLI) | payer MEDICARE | END 2025-03-05 17:00 | disposition home or self-care (01) | LOC: Rad HDHVI 12:51 | PROVIDERS: ATTEND Internal Medicine Cardiovascular Disease | DX: I08.8 Other rheumatic multiple valve diseases (principal); I11.9 Hypertensive heart disease without heart failure | CPT/HCPCS: 93306 ==

== ENCOUNTER → 2025-03-07 | Outpatient (CLI) | payer MEDICARE | END | disposition home or self-care (01) | LOC: Rad HDHVI 15:56 | PROVIDERS: ATTEND Internal Medicine Cardiovascular Disease | DX: I10 Essential (primary) hypertension (principal) | CPT/HCPCS: 93880 ==

== ENCOUNTER 2025-03-12 09:49 | Outpatient (CLI) | payer MEDICARE ==
[~2025-03-12] VITALS: Ht 170.2 cm; Wt 64.9 kg
[2025-03-12] MEDS ORDERED: ADENOSINE 90 MG/30 ML INJ IV ONE (10:37)
[2025-03-12] MEDS ORDERED: ADENOSINE 54 MG in GIVE UN-DILUTED 0 ML IV ONE (12:00)
== END 2025-03-12 17:00 | disposition home or self-care (01) ==
LOC: Rad HDHVI 09:49
PROVIDERS: ATTEND Internal Medicine Cardiovascular Disease
DX: I49.3 Ventricular premature depolarization (principal); I25.10 Atherosclerotic heart disease of native coronary artery without angina pectoris; I11.0 Hypertensive heart disease with heart failure; I50.43 Acute on chronic combined systolic (congestive) and diastolic (congestive) heart failure; I25.2 Old myocardial infarction; E78.00 Pure hypercholesterolemia, unspecified; I25.5 Ischemic cardiomyopathy; R06.02 Shortness of breath; Z95.0 Presence of cardiac pacemaker; F17.210 Nicotine dependence, cigarettes, uncomplicated; Z82.49 Family history of ischemic heart disease and other diseases of the circulatory system
CPT/HCPCS: 78452; 93017; A9500; J0153